=== PATIENT | female | born 1980 | race African-American/Black ===

== ENCOUNTER 2018-07-05 15:16 | Emergency (ER) | payer MEDICAID, OTHER ==
[~2018-07-05] VITALS: Ht 154.9 cm; Wt 65.9 kg
[2018-07-05] MEDS ORDERED: LIDOCAINE 5% TRANSDERMAL PATCH TD ONE (16:15)
[2018-07-05] MEDS ORDERED: IBUPROFEN 600 MG TABLET PO ONE (16:15)
[2018-07-05 16:40] VITALS: BP 122/70
== END 2018-07-05 16:51 | disposition home or self-care (01) ==
LOC: EMS 15:16
DX: S39.012A Strain of muscle, fascia and tendon of lower back, initial encounter (principal); S16.1XXA Strain of muscle, fascia and tendon at neck level, initial encounter; V49.59XA Passenger injured in collision with other motor vehicles in traffic accident, initial encounter; Y93.89 Activity, other specified; Y92.488 Other paved roadways as the place of occurrence of the external cause; Y99.8 Other external cause status